=== PATIENT | female | born 1935 | race Caucasian/White ===

== ENCOUNTER 2018-06-23 08:13 | Day surgery (SDC) | payer MEDICARE ==
[2018-06-22 09:02] VITALS: BMI 25.7
[2018-06-23 09:56] LABS: #Basophils 0.1 thou/uL (0.0-0.2); #Eosinphils 0.4 thou/uL (0.0-0.7); #Lymphocytes 2.3 thou/uL (1.20-3.40); #Monocytes 0.6 thou/uL (0.11-0.59); #Neutrophils 5.4 thou/uL (1.40-6.50); %Basophils 0.7 % (0.0-1.0); %Eosinophils 4.7 % (0.0-10.0); %Lymphocytes 26.2 % (21.0-51.0); %Neutrophils 61.3 % (42.0-75.0); Mean Corpuscular HGB CONC 33.4 g/dL (32.0-36.0); Mean Corpuscular Hemoglobin 32.6 pg (27.0-31.0); Mean Corpuscular Volume 97.6 fL (78.0-98.0); Mean Platelet Volume 8.5 fL (7.4-10.4); Platelet Count 205 thou/uL (130-400); RBC Distribution Width 12.4 % (11.5-14.5); Red Blood Cell (RBC) Count 4.59 mill/uL (4.20-5.40); White Blood Cell (WBC) Count 8.9 thou/uL (4.8-10.8)
[2018-06-23] MEDS ORDERED: Lidocaine 1% PF 5 ML VIAL ONE ×2 (10:04→11:02)
[2018-06-23] MEDS ORDERED: PROPOFOL 20 ML ONE (10:04)
[2018-06-23 10:16] LABS: Anion Gap 13 mmol/L (10-20); BUN (Urea Nitrogen) 19 mg/dL (9.8-20.1); Calc. Creatinine Clearance 50 mL/min (70-130); Calcium 9.4 mg/dL (7.8-10.44); Carbon Dioxide 29 mmol/L (23-31); Chloride 103 mmol/L (98-107); Estimated GFR-MDRD 60; Glucose 83 mg/dL (83-110); Potassium 4.3 mmol/L (3.5-5.1); Sodium 141 mmol/L (136-145)
[2018-06-23] MEDS ORDERED: PROPOFOL 200 MG/20 ML VIAL ONE (11:02)
--- NOTE | 2018-06-23 22:42 | EKG ---
Test Reason : PREOP GARY/CARDIOVER Blood Pressure : / mmHG Vent. Rate : 091 BPM Atrial Rate : 117 BPM P-R Int : 000 ms QRS Dur : 094 ms QT Int : 380 ms P-R-T Axes : 000 -12 061 degrees QTc Int : 467 ms Atrial fibrillation Possible Inferior infarct , age undetermined Abnormal ECG When compared with ECG of 22-JUL-2003 12:40, Atrial fibrillation has replaced Sinus rhythm Confirmed by RHINA WINSLOW, SFortino (4) on 06/23/2018 10:42:27 PM Referred By: DARRICK Confirmed By:DR. Heydi LANTIGUA MD
--- NOTE | 2018-06-23 22:45 | EKG ---
Test Reason : POST CARDIOVERSION Blood Pressure : / mmHG Vent. Rate : 078 BPM Atrial Rate : 078 BPM P-R Int : 254 ms QRS Dur : 096 ms QT Int : 424 ms P-R-T Axes : 073 -13 063 degrees QTc Int : 483 ms Sinus rhythm with 1st degree A-V block Otherwise normal ECG When compared with ECG of 23-JUN-2018 09:43, (Unconfirmed) Sinus rhythm has replaced Atrial fibrillation Confirmed by RHINA WINSLOW, SFortino (4) on 06/23/2018 10:45:09 PM Referred By: DARRICK Confirmed By:DR. Heydi LANTIGUA MD
--- NOTE | 2018-06-24 14:56 | ECHO ---
CARDIOLOGY PROCEDURE NOTE: Date: 06/23/18 PROCEDURE: Transesophageal echocardiogram. PREPROCEDURE DIAGNOSIS: Atrial fibrillation. DETAILS: Transesophageal echo was done for preparation of cardioversion. She was brought down to the [facility] area. The anesthesiology department provided sedation for the patient. Please see their notes for d etails. After adequate sedation was achieved, the transesophageal probe was inserted into the mouth a nd into the esophagus with ease. Multiplanar views were then obtained. FINDINGS: Left ventricle is normal size with normal systolic function. Ejection fraction estimated around 50%. Left atrium is mildly dilated. Left atrial appendage is a small appendage with no evidence of mass or thrombus. Right atrium is normal size. Interatrial septum appears to be intact by color Doppler only. Right ventricle is normal size with normal systolic function. Aortic valve has three cusps. No stenosis or regurgitation. Mitral valve has mild posterior leaflet mitral valve prolapse with moderate mitral regurgitation. Tricuspid valve structurally normal. There is mild TR. Pulmonary valve is not well seen. CONCLUSIONS: 1. Normal systolic function. Ejection fraction at 50%. 2. Left atrial dilatation. 3. Small left atrial appendage with no evidence of mass or thrombus. 4. Mild TR. 5. Mild posterior leaflet mitral valve prolapse with moderate mitral regurgitation.
--- NOTE | 2018-06-24 15:00 | OP ---
CARDIOLOGY PROCEDURE NOTE: Date: 06/23/18 PROCEDURE: Cardioversion. PREPROCEDURE DIAGNOSIS: Atrial fibrillation. SUMMARY: Ms. Botello is a pleasant 82-year-old white female who comes to the procedural area for cardioversion. S he was cleared from any thrombus with a transesophageal echo prior to this. Please see those notes fo r details. The anesthesiology department provided sedation for the patient. Please see their notes for details. After adequate sedation was achieved and the transesophageal echo ruled out any masses or thrombus, t he pads were in place and one single synchronized shock at 100 joules successfully converted into sin us bradycardia in the 40s, and eventually sinus rhythm in the 60s. The patient tolerated the procedur e well. RECOMMENDATIONS: Continue current medications and antiarrhythmic therapy and anticoagulation. Follow-up in the office in 1 month.
== END 2018-06-23 12:21 | disposition home or self-care (01) ==
LOC: CCL 08:13
PROVIDERS: ATTEND Internal Medicine Cardiovascular Disease
PROC: 5A2204Z Restoration of Cardiac Rhythm, Single (ICD-10-PCS; principal; 2018-06-23)
PROC: B24BZZ4 Ultrasonography of Heart with Aorta, Transesophageal (ICD-10-PCS; 2018-06-23)
DX: I48.91 Unspecified atrial fibrillation (principal); I08.1 Rheumatic disorders of both mitral and tricuspid valves; I10 Essential (primary) hypertension; E78.5 Hyperlipidemia, unspecified; J45.909 Unspecified asthma, uncomplicated; Z88.0 Allergy status to penicillin; Z88.8 Allergy status to other drugs, medicaments and biological substances; Z79.01 Long term (current) use of anticoagulants; Z79.899 Other long term (current) drug therapy
CPT/HCPCS: 36415; 80048; 85025; 92960; 93005; 93010; 93312; J2001; J2704